=== PATIENT | male | born 1985 | race Caucasian/White ===

== ENCOUNTER 2017-03-06 07:17 | Emergency (ER) | payer MEDICARE, MEDICAID ==
[2017-03-06 08:00] LABS: % BASOPHILS 1.4 % (0.0-2.0); % EOSINOPHILS 5.9 % (0.0-5.0); % LYMPHOCYTES 17.6 % (20.0-50.0); % NEUTROPHILS 66.1 % (40.0-80.0); HEMATOCRIT 34.8 % (39.0-49.0); MEAN CELL VOLUME 85.6 fl (80-99); MEAN CORPUSCULAR HEMOGLOBIN 28.2 pg (26.0-30.0); MEAN CORPUSCULAR HGB CONC 32.9 pg (28.0-36.0); MEAN PLATELET VOLUME 8.5 fl; NEUTROPHILE ABSOLUTE 7.3 Th/cmm (1.8-8.0); PLATELET COUNT 389 Th/cmm (150-400); RED BLOOD COUNT 4.06 Mil/cmm (4.30-5.70); RED CELL DISTRIBUTION WIDTH 16.6 % (11.5-20.0)
--- NOTE | 2017-03-06 08:03 | ED Physician Chart ---
Chief Complaint/HPI - Patient Information Date Seen:: 03/06/17 Time Seen:: 07:36 Chief Complaint:: ANXIETY History of Present Illness:: THIS IS A 31 YO MALE BIB EMS FROM DIALYSIS UNIT THIS AM BECAUSE RESTLESSNESS AND ANXIETY. HE ALSO COMPLAINS OF LEFT LOWER EXTREMITY PAIN. HE IS DIABETIC AND HAS A HISTORY OF DRUG ABUSE. HE WAS IN THIS ER ONCE BEFORE AND TREATED FOR HIS LEFT LEG PAIN. HE HAD AN HOUR OF DIALYSIS THIS AM WHICH WAS STOPPED BECAUSE OF HIS COMPLIANT OF ANXIETY. Allergies:: Allergies Allergy/AdvReac Type Severity Reaction Status Date / Time No Known Allergies Allergy Verified 12/24/16 13:10 Vitals:: Vital Signs - 8 hr 03/06/17 07:35 Temp 98.3 F HR 84 RR 17 BP 167/77 O2 Sat % 99 Historian:: Patient, Medical Records Review:: Nurse's Note Reviewed, Old Chart Reviewed Review of Systems - Review of Systems General/Constitutional: No fever, No chills, No weight loss, No weakness, No diaphoresis, No edema, No loss of appetite Skin: No skin lesions, No rash, No bruising Head: No headache, No light-headedness Eyes: No loss of vision, No pain, No diplopia ENT: No earache, No nasal drainage, No sore throat, No tinnitus Neck: No neck pain, No swelling, No thyromegaly, No stiffness, No mass noted Cardio Vascular: No chest pain, No palpitations, No PND, No orthopnea, No edema Pulmonary: No SOB, No cough, No sputum, No wheezing GI: No nausea, No vomiting, No diarrhea, No pain, No melena, No hematochezia, No constipation, No hematemesis G/U: No dysuria, No frequency, No hematuria Musculoskeletal: No bone or joint pain, No back pain, No muscle pain, Other ( LEFT LEG PAIN) Endocrine: No polyuria, No polydipsia Psychiatric: No prior psych history, No depression, Anxiety, No suicidal ideation Hematopoietic: No bruising, No lymphadenopathy Allergic/Immuno: No urticaria, No angioedema Neurological: No syncope, No focal symptoms, No weakness, No paresthesia, No headache, No seizure, No dizziness, No confusion, No vertigo Past Medical History - Past Medical History Obtainable: Yes Past Medical History: DM, ESRD Family History: None Social History: Smoker, No Alcohol, Illicit Drug Use, Single Surgical History: other (LEFT BKA) Family Medical History - Family Member Mother History Unknown: Yes Ethnicity: Living Status: Still Living Hx Family Cancer: No Hx Family Coronary Artery Disease: Yes Hx Family Congestive Heart Failure: No Hx Family Hypertension: Yes Hx Family Stroke: Yes Hx Family Diabetes: Yes Hx Family Seizures: No Hx Family Dementia: Yes Hx Family AIDS: No Hx Family HIV: No Hx Family COPD: No Hx Family Hepatitis: No Hx Family Psychiatric Problems: No Hx Family Tuberculosis: No Physical Exam - Physical Examination General/Constitutional: Awake, Well-developed, well-nourished, Alert, No distress, GCS 15, Non-toxic appearing, Ambulatory Head: Atraumatic Eyes: Lids, conjuctiva normal, PERRL, EOMI Skin: Nl inspection, No rash, No skin lesions, No ecchymosis, Well hydrated, No lymphadenopathy ENMT: External ears, nose nl, Nasal exam nl, Lips, teeth, gums nl Neck: Nontender, Full ROM w/o pain, No JVD, No nuchal rigidity, No bruit, No mass, No stridor Respiratory: Nl effort/Exclusion, Clear to Auscultation, No Wheeze/Rhonchi/Rales Cardio Vascular: RRR, No murmur, gallop, rubs, NL S1 S2 GI: No tenderness/rebounding/guarding, No organomegaly, No hernia, Normal BS's, Nondistended, No mass/bruits, No McBurney tenderness : No CVA tenderness Extremities: No tenderness or effusion, Full ROM, normal strength in all extremities, No edema, Normal digits & nails Other Extremities comments:: WELL HEALED LEFT BKA STUMP Neuro/Psych: Alert/oriented, DTR's symmetric, Normal sensory exam, Normal motor strength, Normal gait, No focal deficits Other Neuro/Psych comments:: THE PATIENT IS DEMANDING DRUGS. Misc: normal gait, Normal back, No paraspinal tenderness Labs/Radiology/EKG Results - Lab Results Results: Abnormal Lab Results 03/06/17 03/06/17 03/06/17 07:45 07:45 07:45 WBC 11.0 H RBC 4.06 L Hct 34.8 L D MCV 85.6 MCH 28.2 MCHC Differential 32.9 RDW 16.6 Plt Count 389 D MPV 8.5 Neutrophils % 66.1 Lymphocytes % 17.6 L Monocytes % 9.0 Eosinophils % 5.9 H Basophils % 1.4 PT 9.7 INR 0.93 PTT (Actin FS) 46.6 H Sodium Potassium Chloride Carbon Dioxide Anion Gap BUN Creatinine Est GFR ( Amer) Est GFR (Non-Af Amer) BUN/Creatinine Ratio Glucose Calcium Total Bilirubin AST ALT Alkaline Phosphatase Troponin I Total Protein Albumin Globulin Albumin/Globulin Ratio Triglycerides 171 H Cholesterol 138 LDL Cholesterol Direct 85 HDL Cholesterol 30 03/06/17 03/06/17 07:45 07:45 WBC RBC Hct MCV MCH MCHC Differential RDW Plt Count MPV Neutrophils % Lymphocytes % Monocytes % Eosinophils % Basophils % PT INR PTT (Actin FS) Sodium 132 L Potassium 4.7 Chloride 97 L Carbon Dioxide 26.4 Anion Gap 13.3 BUN 59 H Creatinine 6.7 H* Est GFR ( Amer) 12.4 Est GFR (Non-Af Amer) 10.2 BUN/Creatinine Ratio 8.8 Glucose 176 H Calcium 8.8 Total Bilirubin 0.2 L AST 15 ALT 19 Alkaline Phosphatase 111 H Troponin I 0.01 Total Protein 7.1 Albumin 3.3 L Globulin 3.8 Albumin/Globulin Ratio 0.9 L Triglycerides Cholesterol LDL Cholesterol Direct HDL Cholesterol - Radiology Results Results: chest x-ray = nad - EKG Interpretations EKG Time:: 07:37 Rate & Rhythm: RATE = 88 SINUS Logan: RIGHT AXIS Assessment - Assessment General Assessment: ANXIETY DRUG SEEKING ESRD ED Septic Shock - . Is Septic Shock (SBP<90, OR Lactate>4 mmol\L) present?: No - <6hrs of presentation: Vital Signs: Vital Signs - 8 hr 03/06/17 07:35 Temp 98.3 F HR 84 RR 17 BP 167/77 O2 Sat % 99 Reassessment (Disposition) - Reassessment Reassessment Condition:: Improved - Diagnosis Diagnosis:: ANXIETY REACTION ESRD LEG PAIN DIABETES MELLITUS - Aftercare/Follow up Instructions Aftercare/Follow-Up Instructions:: Counseled pt regarding lab results/diagnosis & need follow up, Refer to Discharge Instructions, Counseled pt & family regarding lab results/diagnosis & need follow up Medication Prescribed:: this patient was sent back to dialysis for the finishing of his dialysis after receiving ativan 1mg. - Patient Disposition Discharge/Transfer:: Home Condition at Disposition:: Improved ED Discharge Plan - Patient Disposition Admit/Discharge/Transfer: PT DISCHARGED HOME Condition at Disposition: Stable Prescriptions: Azithromycin [Zithromax] 250 mg PO DAILY #1 tab Gabapentin 600 mg PO Q6H PRN #30 tablet PRN Reason: pain Instructions: Anxiety and Panic Attacks Additional Instructions: Pls follow up with your primary care physician tomorrow.
[2017-03-06 08:15] LABS: INR 0.93 (0.5-1.4); PROTHROMBIN TIME (TEST) 9.7 SECONDS (9.5-11.5)
--- NOTE | 2017-03-06 08:33 | Diagnostic Imaging Report ---
CHEST X-RAY: AP view INDICATION: Shortness of breath COMPARISON: None FINDINGS: Right dialysis catheter seen with tip in SVC. Suboptimal lung volumes are seen with no focal consolidation or pleural effusions. Heart size is normal. Osseous structures are intact. No evidence of CHF. IMPRESSION: Suboptimal lung volumes with no focal consolidation or evidence of CHF. Right dialysis catheter with tip in the SVC.
[2017-03-06 08:46] LABS: ALB/GLOB RATIO 0.9 (1.0-1.8); ANION GAP 13.3 (7.0-16.0); BILIRUBIN,TOTAL 0.2 mg/dL (0.3-1.0); BUN/CREATININE RATIO 8.8; CALCIUM SERUM 8.8 mg/dL (8.6-10.3); CARBON DIOXIDE 26.4 mEq/L (21.0-31.0); POTASSIUM SERUM 4.7 mEq/L (3.5-5.1)
[2017-03-06 08:47] LABS: CHOLESTEROL 138 mg/dL (<200); TRIGLYCERIDES 171 mg/dL (<150)
[2017-03-06 08:48] LABS: CREATININE - SERUM 6.7 mg/dL (0.7-1.3)
[2017-03-06 08:50] LABS: HEMOGLOBIN 11.4 gm/dL (13.2-17.3)
== END 2017-03-06 10:00 | disposition home or self-care (01) ==
LOC: ER 07:17
DX: F41.9 Anxiety disorder, unspecified (principal); E11.22 Type 2 diabetes mellitus with diabetic chronic kidney disease; N18.6 End stage renal disease; M79.605 Pain in left leg; F17.200 Nicotine dependence, unspecified, uncomplicated; Z99.2 Dependence on renal dialysis
CPT/HCPCS: 99285; 96374; 96375; 93005; 71010; 84484; 36415; 84443; 86592; 85025; 85610; 85730; 83036; 80053; 80061; 87040 ×2; J1885; J2060; J1200

== ENCOUNTER 2017-03-07 12:45 | Emergency (ER) | payer MEDICARE, MEDICAID ==
--- NOTE | 2017-03-07 13:44 | ED Physician Chart ---
Chief Complaint/HPI - Patient Information Date Seen:: 03/07/17 Time Seen:: 13:38 Chief Complaint:: penile issue History of Present Illness:: pt brought in by his mom. pt is very drowsey and has difficulty staying awake to complete a full sentence...however mom dismisses this and says he was up late last nt and this is not unusual behavior. he is on narcotics but Mom says she is dosing them for him. 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 Dr advised take back to sx who did penis sx 3 months ago..so mom came directly here. unclear what prior sx was..(per our records he had a "Debridement of Penile Wound" )...Mom says her PMD refilled his meds today but denies that he had run out of medicines last few days. eating ok. hx of DM and renal failure..last dialysis yest. he does make some urine. pt was in [facility] until 2 wks ago when Mom took him home. Allergies:: Allergies Allergy/AdvReac Type Severity Reaction Status Date / Time No Known Allergies Allergy Verified 12/24/16 13:10 Vitals:: Vital Signs - 8 hr 03/07/17 13:16 Temp 97.1 F HR 77 RR 17 BP 156/91 O2 Sat % 99 Historian:: Patient Review of Systems - Review of Systems General/Constitutional: No fever, No chills, No weight loss, No weakness, No diaphoresis, No edema, No loss of appetite Skin: No skin lesions, No rash, No bruising Head: No headache, No light-headedness Eyes: No loss of vision, No pain, No diplopia ENT: No earache, No nasal drainage, No sore throat, No tinnitus Neck: No neck pain, No swelling, No thyromegaly, No stiffness, No mass noted Cardio Vascular: No chest pain, No palpitations, No PND, No orthopnea, No edema Pulmonary: No SOB, No cough, No sputum, No wheezing GI: No nausea, No vomiting, No diarrhea, No pain, No melena, No hematochezia, No constipation, No hematemesis G/U: No dysuria, No frequency, No hematuria, Other (dc? deformation of penile meatus) Musculoskeletal: No bone or joint pain, No back pain, No muscle pain, Other (l leg bka) Endocrine: No polyuria, No polydipsia Psychiatric: No prior psych history, No depression, No anxiety, No suicidal ideation Hematopoietic: No bruising, No lymphadenopathy Allergic/Immuno: No urticaria, No angioedema Neurological: No syncope, No focal symptoms, No weakness, No paresthesia, No headache, No seizure, No dizziness, No confusion, No vertigo Past Medical History - Past Medical History Past Medical History: HTN, DM, Dyslipidemia, ESRD, Other (legally blind) Social History: Smoker (mj only hx), Lives With Parents Surgical History: other (l bka) Medication: Reviewed Family Medical History - Family Member Mother History Unknown: Yes Ethnicity: Living Status: Still Living Hx Family Cancer: No Hx Family Coronary Artery Disease: Yes Hx Family Congestive Heart Failure: No Hx Family Hypertension: Yes Hx Family Stroke: Yes Hx Family Diabetes: Yes Hx Family Seizures: No Hx Family Dementia: Yes Hx Family AIDS: No Hx Family HIV: No Hx Family COPD: No Hx Family Hepatitis: No Hx Family Psychiatric Problems: No Hx Family Tuberculosis: No Physical Exam - Physical Examination General/Constitutional: Awake, Well-developed, well-nourished, Alert, No distress, GCS 15, Non-toxic appearing, Ambulatory Other Gen/Cons comments:: very drowsey ...but Mom says this is nrml given his poor sleep last nt. pt doesnt seem very motivated to speak w me...lets mom do all the talking. pt can awake and say he is ok and has trouble staying awake through a long sentence ... no obv acute neuro defecits. not helpful for exam. Head: Atraumatic Eyes: Lids, conjuctiva normal, PERRL, EOMI Other Eyes comments:: legally blind Skin: Nl inspection, No rash, No skin lesions, No ecchymosis, Well hydrated, No lymphadenopathy ENMT: External ears, nose nl, Nasal exam nl, Lips, teeth, gums nl Neck: Nontender, Full ROM w/o pain, No JVD, No nuchal rigidity, No bruit, No mass, No stridor Respiratory: Nl effort/Exclusion, Clear to Auscultation, No Wheeze/Rhonchi/Rales Cardio Vascular: RRR, No murmur, gallop, rubs, NL S1 S2 GI: No tenderness/rebounding/guarding, No organomegaly, No hernia, Normal BS's, Nondistended, No mass/bruits, No McBurney tenderness : No CVA tenderness Other comments:: penile shaft has some fullness (extra skin to l side) the meatus has a large cruciate exit now instead of discreet circular meatus..out flow is 1-2cm in width w hypospadia. no pus but dribbles yellow cloudy urine. Extremities: No tenderness or effusion, Full ROM, normal strength in all extremities, No edema, Normal digits & nails Other Extremities comments:: l leg bka well healed Neuro/Psych: Alert/oriented, DTR's symmetric, Normal sensory exam, Normal motor strength, Judgement/insight normal, Mood normal, Normal gait, No focal deficits Misc: normal gait, Normal back, No paraspinal tenderness Labs/Radiology/EKG Results - Lab Results Results: Laboratory Tests 03/07/17 03/07/17 03/07/17 13:30 13:30 13:44 WBC 11.1 H RBC 3.88 L Hgb 10.9 L Hct 33.7 L MCV 86.7 MCH 28.0 MCHC Differential 32.4 RDW 16.1 Plt Count 365 MPV 8.3 Neutrophils % 66.4 Lymphocytes % 15.7 L Monocytes % 11.4 H Eosinophils % 4.7 Basophils % 1.8 Sodium Potassium Chloride Carbon Dioxide Anion Gap BUN Creatinine Est GFR ( Amer) Est GFR (Non-Af Amer) BUN/Creatinine Ratio Glucose Calcium Total Bilirubin AST ALT Alkaline Phosphatase Total Protein Albumin Globulin Albumin/Globulin Ratio Urine Source CATH Urine Color YELLOW Urine Clarity CLOUDY Urine pH 7.5 Ur Specific [place] 1.020 Urine Protein >=300 Urine Glucose (UA) NEGATIVE Urine Ketones NEGATIVE Urine Blood SMALL H Urine Nitrate NEGATIVE Urine Bilirubin NEGATIVE Urine Urobilinogen 0.2 Ur Leukocyte Esterase TRACE H Urine RBC 2-5 H Urine WBC 6-10 H Ur Epithelial Cells NONE SEEN Urine Bacteria MANY Urine Opiates Screen POSITIVE H Urine Methadone Screen NEGATIVE Ur Barbiturates Screen NEGATIVE Ur Tricyclics Screen NEGATIVE Ur Phencyclidine Scrn NEGATIVE Amphetamines Screen NEGATIVE U Methamphetamines Scrn NEGATIVE U Benzodiazepines Scrn NEGATIVE U Cocaine Metab Screen NEGATIVE U Cannabinoids Screen POSITIVE H Ethyl Alcohol 03/07/17 13:44 WBC RBC Hgb Hct MCV MCH MCHC Differential RDW Plt Count MPV Neutrophils % Lymphocytes % Monocytes % Eosinophils % Basophils % Sodium 130 L Potassium 6.0 H Chloride 96 L Carbon Dioxide 26.4 Anion Gap 13.6 BUN 58 H Creatinine 5.6 H* Est GFR ( Amer) 15.3 Est GFR (Non-Af Amer) 12.6 BUN/Creatinine Ratio 10.4 Glucose 174 H Calcium 8.9 Total Bilirubin 0.2 L AST 12 L ALT 16 Alkaline Phosphatase 97 Total Protein 6.8 Albumin 3.0 L Globulin 3.8 Albumin/Globulin Ratio 0.8 L Urine Source Urine Color Urine Clarity Urine pH Ur Specific [place] Urine Protein Urine Glucose (UA) Urine Ketones Urine Blood Urine Nitrate Urine Bilirubin Urine Urobilinogen Ur Leukocyte Esterase Urine RBC Urine WBC Ur Epithelial Cells Urine Bacteria Urine Opiates Screen Urine Methadone Screen Ur Barbiturates Screen Ur Tricyclics Screen Ur Phencyclidine Scrn Amphetamines Screen U Methamphetamines Scrn U Benzodiazepines Scrn U Cocaine Metab Screen U Cannabinoids Screen Ethyl Alcohol < 10 ED Septic Shock - . Is Septic Shock (SBP<90, OR Lactate>4 mmol\\L) present?: No - <6hrs of presentation: Vital Signs: Vital Signs - 8 hr 03/07/17 13:16 Temp 97.1 F HR 77 RR 17 BP 156/91 O2 Sat % 99 Reassessment (Disposition) - Reassessment Reassessment:: case d/w Dr Conley - says if pt needs further sx should be done by a urology sx. dw admin...no u s available at this facility advised transfer to [facility]. 3;25pm - case dw Dr Colón at [facility] who is accepting pt transfer there. Reassessment Condition:: Unchanged - Diagnosis Diagnosis:: 1 uti 2 hypospadia / malformation from prior urological surgery 3 possible infection of penis - Aftercare/Follow up Instructions Aftercare/Follow-Up Instructions:: Counseled pt & family regarding lab results/ diagnosis & need follow up - Patient Disposition Discharge/Transfer:: Acute Care (other hosp) ([facility]) Condition at Disposition:: Unchanged
[2017-03-07 13:53] LABS: % BASOPHILS 1.8 % (0.0-2.0); % EOSINOPHILS 4.7 % (0.0-5.0); % LYMPHOCYTES 15.7 % (20.0-50.0); % MONOCYTES 11.4 % (2.0-10.0); % NEUTROPHILS 66.4 % (40.0-80.0); BASOPHILE ABSOLUTE 0.2 Th/cumm (0-0.2); EOSINOPHILE ABSOLUTE 0.5 Th/cmm (0.1-0.4); HEMATOCRIT 33.7 % (39.0-49.0); HEMOGLOBIN 10.9 gm/dL (13.2-17.3); LYMPHOCYTE ABSOLUTE 1.7 Th/cmm (1.5-3.0); MEAN CELL VOLUME 86.7 fl (80-99); MEAN CORPUSCULAR HGB CONC 32.4 pg (28.0-36.0); MEAN PLATELET VOLUME 8.3 fl; MONOCYTE ABSOLUTE 1.3 Th/cmm (0.3-1.0); NEUTROPHILE ABSOLUTE 7.4 Th/cmm (1.8-8.0); PLATELET COUNT 365 Th/cmm (150-400); RED BLOOD COUNT 3.88 Mil/cmm (4.30-5.70); RED CELL DISTRIBUTION WIDTH 16.1 % (11.5-20.0); WHITE BLOOD COUNT 11.1 Th/cmm (4.8-10.8)
[2017-03-07 14:09] LABS: ALB/GLOB RATIO 0.8 (1.0-1.8); ALKALINE PHOSPHATASE 97 U/L (34-104); ANION GAP 13.6 (7.0-16.0); BILIRUBIN,TOTAL 0.2 mg/dL (0.3-1.0); BUN - UREA NITROGEN 58 mg/dL (7-25); CALCIUM SERUM 8.9 mg/dL (8.6-10.3); CARBON DIOXIDE 26.4 mEq/L (21.0-31.0); CHLORIDE 96 mEq/L (98-107); GFR AFRICAN-AMERICAN 15.3 ml/min (>90); GFR NON AFRICAN-AMERICAN 12.6 ml/min; GLUCOSE 174 mg/dL (70-105); SGOT 12 U/L (13-39); SGPT/ALT 16 U/L (7-52); SODIUM SERUM 130 mEq/L (136-145); TOTAL PROTEIN,SERUM 6.8 gm/dL (6.0-8.3)
[2017-03-07 14:13] LABS: URINE MICROSCOPIC INDICATED? YES; URINE SOURCE CATH
[2017-03-07 14:17] LABS: URINE BILIRUBIN NEGATIVE (NEGATIVE); URINE BLOOD SMALL (NEGATIVE); URINE GLUCOSE (UA) NEGATIVE (NEGATIVE); URINE KETONE NEGATIVE (NEGATIVE); URINE LEUKOCYTE ESTERASE TRACE (NEGATIVE); URINE NITRATE NEGATIVE (NEGATIVE); URINE PH 7.5 (4.6 - 8.0); URINE PROTEIN >=300 mg/dL (NEGATIVE); URINE UROBILINOGEN 0.2 E.U./dL (0.2 - 1.0)
[2017-03-07 14:32] LABS: URINE CLARITY CLOUDY (CLEAR); URINE COLOR YELLOW
[2017-03-07 14:33] LABS: URINE EPITHELIAL CELLS NONE SEEN /lpf (FEW)
[2017-03-07 14:34] LABS: URINE BACTERIA MANY /hpf (NONE SEEN)
[2017-03-07 14:45] LABS: CREATININE - SERUM 5.6 mg/dL (0.7-1.3)
[2017-03-07 15:05] LABS: AMPHETAMINE URINE NEGATIVE (NEGATIVE); BARBITURATES URINE NEGATIVE (NEGATIVE); BENZODIAZEPINES QUAL URINE NEGATIVE (NEGATIVE); CANNABINOID THC POSITIVE (NEGATIVE); COCAINE METABOLITE QUAL URINE NEGATIVE (NEGATIVE); METHADONE URINE NEGATIVE (NEGATIVE); METHAMPHETAMINES QUAL URINE NEGATIVE (NEGATIVE); OPIATES (MORPHINE) QUAL. URINE POSITIVE (NEGATIVE); PHENCYCLIDINE (PCP) URINE NEGATIVE (NEGATIVE); TRICYCLICS (TCA) QUAL. URINE NEGATIVE (NEGATIVE)
[2017-03-07] MEDS ORDERED: Levofloxacin 500mg/100mL 500 MG/100 ML BAG IV ONE ×6 (16:00→16:18)
[2017-03-07] MEDS ORDERED: HYDROmorphone 1 mg/mL 1mL Syr IVP STA ×2 (16:29)
== END 2017-03-07 17:29 | disposition short-term general hospital (02) ==
LOC: ER 12:45
DX: N39.0 Urinary tract infection, site not specified (principal); I12.0 Hypertensive chronic kidney disease with stage 5 chronic kidney disease or end stage renal disease; E11.22 Type 2 diabetes mellitus with diabetic chronic kidney disease; N18.6 End stage renal disease; E78.5 Hyperlipidemia, unspecified; F17.200 Nicotine dependence, unspecified, uncomplicated
CPT/HCPCS: 99285; 96365; 36415; 83605; 80307; 85025; 87086; 81001; 80320; 80053; 87040 ×2; J1956; Z7502